=== PATIENT | female | born 1930 | race African-American/Black ===

== ENCOUNTER 2018-04-15 17:56 | Inpatient (IN) ==
[2018-04-15] MEDS ORDERED: KETOROLAC 30 MG/1 ML VIAL IV STA (18:16)
[2018-04-15] MEDS ORDERED: ONDANSETRON 4 MG/2 ML VIAL IV STA (18:16)
[2018-04-15] MEDS ORDERED: SUMAtriptan 6 MG/0.5 ML VIAL SUBCUT STA (18:16)
[2018-04-15] MEDS ORDERED: METOPROLOL TARTRATE 5 MG/5 ML VIAL IV STA (18:16)
[2018-04-15 19:14] LABS: Basophils # 0.1 10*3/uL (0.0-0.2); Basophils % 0.5 % (0.0-0.8); Eosinophils % 0.3 % (0.00-10.9); Hematocrit 30.3 VOL% (35.7-47.0); Hemoglobin 11.2 GM/DL (12.0-16.0); Immature Granulocytes % 0.3 %; Immature Granulocytes Absolute 0.03 #; Lymphocytes # 1.4 10*3/uL (1.4-4.0); Mean Corpuscular Hemoglobin 30 PG (27-34); Mean Corpuscular Volume 80.2 FL (87-102); Mean Platelet Volume 10.1 FL (9.6-12.0); Monocytes # 0.8 10*3/uL (0.11-0.8); Monocytes % 7.1 % (1.7-12.7); Neutrophils # 8.8 10*3/uL (1.4-7.4); Neutrophils % 78.8 % (38.7-73.9); Platelet Count 198 T/CUMM (130-400); Red Blood Count 3.78 MC/CUMM (3.8-5.5); Red Cell Distribution Width 14.3 % (9.3-17.3); White Blood Count 11.1 T/CUMM (4-12)
[2018-04-15 19:21] LABS: INR 1.1; PT Patient Result 11.1 SECS; Partial Thromboplastin Time 28.8 SECS (0-40)
[2018-04-15 19:27] LABS: Alanine Aminotransferase 15 U/L (13-56); Albumin 4.1 G/DL (3.4-5.0); Alkaline Phosphatase 83 U/L (45-117); Amylase 115 U/L (25-115); Aspartate Amino Transferase 22 U/L (0-37); Blood Urea Nitrogen 16 MG/DL (7-18); Calcium 9.1 MG/DL (8.5-10.1); Glucose 114 MG/DL (74-106); Osmolality,Calculated 282.3 MOS/KG (273-304); Potassium 3.6 MMOL/L (3.5-5.1); Sodium 141 MMOL/L (136-145); Total Protein 8.6 G/DL (6.4-8.3)
[2018-04-15 19:35] LABS: Troponin I Only 0.053 NG/ML (0.00-0.045)
[2018-04-15] MEDS ORDERED: FUROSEMIDE 40 MG/4 ML VIAL IV STA (20:16)
[2018-04-15] MEDS ORDERED: NITROGLYCERIN 2% OINT 1 INCH/GM PACK TOP STA (20:43)
[2018-04-15] MEDS ORDERED: ONDANSETRON 4 MG/2 ML VIAL IV PRN (21:53)
[2018-04-15] MEDS ORDERED: CETIRIZINE 10 MG TABLET PO PRN (22:07)
[2018-04-16] MEDS: cefTRIAXone 1,000 MG in SYRINGE 1 EACH IV SCH ×2 (01:04→23:54)
[2018-04-16 07:00] LABS: Basophils # 0.1 10*3/uL (0.0-0.2); Basophils % 0.7 % (0.0-0.8); Eosinophils # 0.1 10*3/uL (0.0-0.87); Eosinophils % 0.9 % (0.00-10.9); Hematocrit 26.6 VOL% (35.7-47.0); Hemoglobin 9.3 GM/DL (12.0-16.0); Immature Granulocytes % 0.3 %; Immature Granulocytes Absolute 0.03 #; Lymphocytes # 1.3 10*3/uL (1.4-4.0); Lymphocytes % 14.4 % (21.3-54.2); Mean Corpuscular Hemoglobin 29 PG (27-34); Mean Corpuscular Volume 83.1 FL (87-102); Mean Platelet Volume 10.3 FL (9.6-12.0); Monocytes # 0.8 10*3/uL (0.11-0.8); Monocytes % 8.6 % (1.7-12.7); Neutrophils # 6.8 10*3/uL (1.4-7.4); Neutrophils % 75.1 % (38.7-73.9); Platelet Count 177 T/CUMM (130-400); Red Cell Distribution Width 14.1 % (9.3-17.3); White Blood Count 9.1 T/CUMM (4-12)
[2018-04-16 07:25] LABS: Calcium 9.1 MG/DL (8.5-10.1); Osmolality,Calculated 287.8 MOS/KG (273-304); Potassium 3.9 MMOL/L (3.5-5.1)
[2018-04-16] MEDS ORDERED: ENOXAPARIN 40 MG/0.4 ML SYRINGE SUBCUT SCH (09:00)
[2018-04-16] MEDS ORDERED: LOSARTAN 25 MG TABLET PO SCH (09:00)
[2018-04-16] MEDS: hydrALAZINE 25 MG TABLET PO SCH ×3 (09:48→21:04)
[2018-04-16] MEDS: FUROSEMIDE 40 MG/4 ML VIAL IV SCH ×2 (09:48→15:02)
[2018-04-16] MEDS: POTASSIUM CHLORIDE 10 MEQ TABLET PO SCH ×2 (09:48→20:41)
[2018-04-16] MEDS: GABAPENTIN 300 MG CAPSULE PO SCH ×3 (09:48→20:41)
[2018-04-16] MEDS: TOLTERODINE LA 4 MG CAPSULE PO SCH (09:49)
[2018-04-16] MEDS: FLUTICASONE 50 MCG NASAL SPRAY 16 GM BOTTLE BOTH NARES SCH (09:49)
[2018-04-16] MEDS: MEMANTINE 10 MG TABLET PO SCH ×2 (09:49→20:42)
[2018-04-16] MEDS: PANTOPRAZOLE 40 MG TABLET PO SCH (09:49)
[2018-04-16] MEDS: CARVEDILOL 6.25 MG TABLET PO SCH ×2 (09:49→20:42)
[2018-04-16] MEDS ORDERED: ASPIRIN EC 325 MG TABLET PO SCH (15:30)
[2018-04-16 17:22] LABS: % Iron Saturation 5.2 % (18-50)
[2018-04-16 17:25] LABS: Troponin I Only 0.072 NG/ML (0.00-0.045)
[2018-04-16] MEDS: DONEPEZIL 10 MG TABLET PO SCH (20:41)
[2018-04-16] MEDS: ACETAMINOPHEN 325 MG TABLET PO PRN (20:41)
[2018-04-17 06:51] LABS: Basophils % 0.3 % (0.0-0.8); Eosinophils # 0.1 10*3/uL (0.0-0.87); Eosinophils % 1.7 % (0.00-10.9); Hemoglobin 8.7 GM/DL (12.0-16.0); Immature Granulocytes % 0.3 %; Immature Granulocytes Absolute 0.02 #; Lymphocytes # 1.6 10*3/uL (1.4-4.0); Lymphocytes % 20.8 % (21.3-54.2); Mean Corpuscular HGB Conc 36.3 GM/DL (32-36); Mean Corpuscular Hemoglobin 30 PG (27-34); Mean Corpuscular Volume 81.6 FL (87-102); Mean Platelet Volume 10.7 FL (9.6-12.0); Monocytes # 0.7 10*3/uL (0.11-0.8); Monocytes % 8.4 % (1.7-12.7); Neutrophils # 5.3 10*3/uL (1.4-7.4); Neutrophils % 68.5 % (38.7-73.9); Platelet Count 166 T/CUMM (130-400); Red Blood Count 2.94 MC/CUMM (3.8-5.5); Red Cell Distribution Width 14.2 % (9.3-17.3); White Blood Count 7.8 T/CUMM (4-12)
[2018-04-17 07:20] LABS: Calcium 8.5 MG/DL (8.5-10.1); Osmolality,Calculated 285.4 MOS/KG (273-304); Potassium 4.3 MMOL/L (3.5-5.1); Risk Ratio 2.62; VLDL CHOLESTEROL 17.2 MG/DL
[2018-04-17 07:48] LABS: CKMB % 0.5 %
[2018-04-17 07:49] LABS: Troponin I Only 0.058 NG/ML (0.00-0.045)
[2018-04-17] MEDS: GABAPENTIN 300 MG CAPSULE PO SCH ×3 (08:27→20:15)
[2018-04-17] MEDS: CARVEDILOL 6.25 MG TABLET PO SCH (08:27)
[2018-04-17] MEDS: MEMANTINE 10 MG TABLET PO SCH ×2 (08:27→20:17)
[2018-04-17] MEDS: PANTOPRAZOLE 40 MG TABLET PO SCH (08:27)
[2018-04-17] MEDS: hydrALAZINE 25 MG TABLET PO SCH (08:27)
[2018-04-17] MEDS: TOLTERODINE LA 4 MG CAPSULE PO SCH (08:27)
[2018-04-17] MEDS: ASPIRIN EC 81 MG TABLET PO SCH (08:27)
[2018-04-17] MEDS: FLUTICASONE 50 MCG NASAL SPRAY 16 GM BOTTLE BOTH NARES SCH (08:31)
[2018-04-17] MEDS: CARVEDILOL 3.125 MG TABLET PO SCH ×2 (14:28→20:16)
[2018-04-17 15:58] LABS: Amorphous Crystals,Urine Occasional /HPF (Few); Apearance,Urine Slightly Hazy (Clear); Bacteria,Urine Occasional /HPF (Few); Bilirubin,Urine Negative (Negative); Blood, Urine Negative (Negative); Glucose,Urine (UA) Negative (Negative); Hyaline Casts,Urine 3 /LPF (0-3); Ketones,Urine Negative (Negative); Nitrite,Urine Negative (Negative); Protein,Urine Negative; RBC,Urine 1 /HPF (0-4); Squamous Epithelial Cell,Urine Occasional /HPF (0-10); Urine Color Yellow (Yellow); Urine Specific Gravity 1.012 (1.001-1.035); Urine Urobilinogen < 2.0 EU/DL (0.2-1.0); WBC,Urine 1 /HPF (0-6)
[2018-04-17] MEDS: DONEPEZIL 10 MG TABLET PO SCH (20:15)
[2018-04-18] MEDS: cefTRIAXone 1,000 MG in SYRINGE 1 EACH IV SCH (00:53)
[2018-04-18] MEDS: ACETAMINOPHEN 325 MG TABLET PO PRN (00:56)
[2018-04-18 06:48] LABS: Basophils % 0.5 % (0.0-0.8); Eosinophils # 0.2 10*3/uL (0.0-0.87); Eosinophils % 3.1 % (0.00-10.9); Hematocrit 24.7 VOL% (35.7-47.0); Hemoglobin 8.7 GM/DL (12.0-16.0); Immature Granulocytes % 0.2 %; Immature Granulocytes Absolute 0.01 #; Lymphocytes # 1.6 10*3/uL (1.4-4.0); Lymphocytes % 23.9 % (21.3-54.2); Mean Corpuscular HGB Conc 35.2 GM/DL (32-36); Mean Corpuscular Hemoglobin 29 PG (27-34); Mean Corpuscular Volume 83.2 FL (87-102); Mean Platelet Volume 10.7 FL (9.6-12.0); Monocytes # 0.6 10*3/uL (0.11-0.8); Neutrophils # 4.1 10*3/uL (1.4-7.4); Neutrophils % 63.3 % (38.7-73.9); Platelet Count 151 T/CUMM (130-400); Red Blood Count 2.97 MC/CUMM (3.8-5.5); White Blood Count 6.5 T/CUMM (4-12)
[2018-04-18 07:30] LABS: Calcium 8.4 MG/DL (8.5-10.1); Osmolality,Calculated 278.1 MOS/KG (273-304); Potassium 4.2 MMOL/L (3.5-5.1)
[2018-04-18] MEDS: CARVEDILOL 3.125 MG TABLET PO SCH (09:40)
[2018-04-18] MEDS: GABAPENTIN 300 MG CAPSULE PO SCH ×3 (09:40→21:17)
[2018-04-18] MEDS: PANTOPRAZOLE 40 MG TABLET PO SCH (09:40)
[2018-04-18] MEDS: FLUTICASONE 50 MCG NASAL SPRAY 16 GM BOTTLE BOTH NARES SCH (09:40)
[2018-04-18] MEDS: ASPIRIN EC 81 MG TABLET PO SCH (09:40)
[2018-04-18] MEDS: TOLTERODINE LA 4 MG CAPSULE PO SCH (09:40)
[2018-04-18] MEDS: MEMANTINE 10 MG TABLET PO SCH ×2 (09:40→21:17)
[2018-04-18] MEDS: DONEPEZIL 10 MG TABLET PO SCH (21:17)
[2018-04-19 06:27] LABS: Calcium 6.5 MG/DL (8.5-10.1); Osmolality,Calculated 278.2 MOS/KG (273-304); Potassium 4.3 MMOL/L (3.5-5.1)
[2018-04-19] MEDS: PANTOPRAZOLE 40 MG TABLET PO SCH (08:48)
[2018-04-19] MEDS: MEMANTINE 10 MG TABLET PO SCH ×2 (08:48→20:40)
[2018-04-19] MEDS: ASPIRIN EC 81 MG TABLET PO SCH (08:48)
[2018-04-19] MEDS: GABAPENTIN 300 MG CAPSULE PO SCH ×3 (08:48→20:39)
[2018-04-19] MEDS: FLUTICASONE 50 MCG NASAL SPRAY 16 GM BOTTLE BOTH NARES SCH (08:49)
[2018-04-19] MEDS: ACETAMINOPHEN 325 MG TABLET PO PRN (10:48)
[2018-04-19] MEDS: DONEPEZIL 10 MG TABLET PO SCH (20:39)
[2018-04-20 07:12] LABS: Basophils % 0.5 % (0.0-0.8); Eosinophils # 0.3 10*3/uL (0.0-0.87); Hematocrit 24.5 VOL% (35.7-47.0); Hemoglobin 8.8 GM/DL (12.0-16.0); Immature Granulocytes % 0.3 %; Immature Granulocytes Absolute 0.02 #; Lymphocytes # 1.2 10*3/uL (1.4-4.0); Lymphocytes % 19.6 % (21.3-54.2); Mean Corpuscular HGB Conc 35.9 GM/DL (32-36); Mean Corpuscular Hemoglobin 29 PG (27-34); Mean Corpuscular Volume 81.9 FL (87-102); Mean Platelet Volume 10.7 FL (9.6-12.0); Monocytes # 0.5 10*3/uL (0.11-0.8); Monocytes % 8.4 % (1.7-12.7); Neutrophils # 4.2 10*3/uL (1.4-7.4); Neutrophils % 67.2 % (38.7-73.9); Platelet Count 176 T/CUMM (130-400); Red Blood Count 2.99 MC/CUMM (3.8-5.5); Red Cell Distribution Width 13.4 % (9.3-17.3); White Blood Count 6.2 T/CUMM (4-12)
[2018-04-20 07:43] LABS: Calcium 8.5 MG/DL (8.5-10.1); Osmolality,Calculated 287.5 MOS/KG (273-304); Potassium 4.6 MMOL/L (3.5-5.1)
[2018-04-20] MEDS: MEMANTINE 10 MG TABLET PO SCH ×2 (10:05→21:32)
[2018-04-20] MEDS: ASPIRIN EC 81 MG TABLET PO SCH (10:05)
[2018-04-20] MEDS: PANTOPRAZOLE 40 MG TABLET PO SCH (10:05)
[2018-04-20] MEDS: GABAPENTIN 300 MG CAPSULE PO SCH ×3 (10:05→21:32)
[2018-04-20] MEDS: FLUTICASONE 50 MCG NASAL SPRAY 16 GM BOTTLE BOTH NARES SCH (10:05)
[2018-04-20] MEDS: DONEPEZIL 10 MG TABLET PO SCH (21:32)
[2018-04-21 07:44] LABS: Osmolality,Calculated 288.3 MOS/KG (273-304); Potassium 4.6 MMOL/L (3.5-5.1)
[2018-04-21] MEDS: MEMANTINE 10 MG TABLET PO SCH ×2 (09:19→20:45)
[2018-04-21] MEDS: PANTOPRAZOLE 40 MG TABLET PO SCH (09:19)
[2018-04-21] MEDS: GABAPENTIN 300 MG CAPSULE PO SCH ×3 (09:19→20:45)
[2018-04-21] MEDS: ASPIRIN EC 81 MG TABLET PO SCH (09:20)
[2018-04-21] MEDS: FLUTICASONE 50 MCG NASAL SPRAY 16 GM BOTTLE BOTH NARES SCH (09:22)
[2018-04-21] MEDS: CARVEDILOL 3.125 MG TABLET PO SCH ×2 (13:50→20:45)
[2018-04-21] MEDS: DONEPEZIL 10 MG TABLET PO SCH (20:45)
[2018-04-22] MEDS ORDERED: BISACODYL 5 MG TABLET PO ONE (07:38)
[2018-04-22] MEDS: PANTOPRAZOLE 40 MG TABLET PO SCH (09:00)
[2018-04-22] MEDS: GABAPENTIN 300 MG CAPSULE PO SCH ×3 (09:00→20:41)
[2018-04-22] MEDS: MEMANTINE 10 MG TABLET PO SCH ×2 (09:00→20:41)
[2018-04-22] MEDS: ASPIRIN EC 81 MG TABLET PO SCH (09:00)
[2018-04-22] MEDS: CARVEDILOL 3.125 MG TABLET PO SCH ×2 (09:01→20:41)
[2018-04-22] MEDS: FLUTICASONE 50 MCG NASAL SPRAY 16 GM BOTTLE BOTH NARES SCH (09:02)
[2018-04-22] MEDS ORDERED: TUBERCULIN SKIN TEST 0.1 ML SYRINGE INTRADERM ONE (13:15)
[2018-04-22] MEDS: POLYETHYLENE GLYCOL POWDER 17 GM PACK PO SCH (14:17)
[2018-04-22] MEDS: DOCUSATE SODIUM 100 MG CAPSULE PO PRN (20:41)
[2018-04-22] MEDS: DONEPEZIL 10 MG TABLET PO SCH (20:41)
[2018-04-23] MEDS: CARVEDILOL 3.125 MG TABLET PO SCH ×2 (09:29→20:20)
[2018-04-23] MEDS: POLYETHYLENE GLYCOL POWDER 17 GM PACK PO SCH (09:29)
[2018-04-23] MEDS: ASPIRIN EC 81 MG TABLET PO SCH (09:29)
[2018-04-23] MEDS: MEMANTINE 10 MG TABLET PO SCH ×2 (09:29→20:20)
[2018-04-23] MEDS: PANTOPRAZOLE 40 MG TABLET PO SCH (09:30)
[2018-04-23] MEDS: GABAPENTIN 300 MG CAPSULE PO SCH ×3 (09:30→20:20)
[2018-04-23] MEDS: DOCUSATE SODIUM 100 MG CAPSULE PO PRN (09:30)
[2018-04-23] MEDS: FLUTICASONE 50 MCG NASAL SPRAY 16 GM BOTTLE BOTH NARES SCH (09:32)
[2018-04-23] MEDS: DONEPEZIL 10 MG TABLET PO SCH (20:20)
[2018-04-24 07:30] LABS: Basophils # 0.1 10*3/uL (0.0-0.2); Basophils % 0.8 % (0.0-0.8); Eosinophils # 0.2 10*3/uL (0.0-0.87); Eosinophils % 2.7 % (0.00-10.9); Hematocrit 24.5 VOL% (35.7-47.0); Hemoglobin 8.6 GM/DL (12.0-16.0); Immature Granulocytes % 0.3 %; Immature Granulocytes Absolute 0.02 #; Lymphocytes # 1.6 10*3/uL (1.4-4.0); Lymphocytes % 20.6 % (21.3-54.2); Mean Corpuscular HGB Conc 35.1 GM/DL (32-36); Mean Corpuscular Hemoglobin 29 PG (27-34); Mean Corpuscular Volume 82.8 FL (87-102); Mean Platelet Volume 10.9 FL (9.6-12.0); Monocytes # 0.7 10*3/uL (0.11-0.8); Monocytes % 8.5 % (1.7-12.7); Neutrophils # 5.3 10*3/uL (1.4-7.4); Neutrophils % 67.1 % (38.7-73.9); Platelet Count 249 T/CUMM (130-400); Red Blood Count 2.96 MC/CUMM (3.8-5.5); Red Cell Distribution Width 13.5 % (9.3-17.3); White Blood Count 7.9 T/CUMM (4-12)
[2018-04-24 07:54] LABS: Osmolality,Calculated 284.3 MOS/KG (273-304); Potassium 4.3 MMOL/L (3.5-5.1)
[2018-04-24] MEDS ORDERED: DICLOFENAC 1.3% PATCH 5/PACK TRANSDERM SCH (09:00)
[2018-04-24] MEDS: GABAPENTIN 300 MG CAPSULE PO SCH (09:37)
[2018-04-24] MEDS: PANTOPRAZOLE 40 MG TABLET PO SCH (09:37)
[2018-04-24] MEDS: ASPIRIN EC 81 MG TABLET PO SCH (09:37)
[2018-04-24] MEDS: POLYETHYLENE GLYCOL POWDER 17 GM PACK PO SCH (09:37)
[2018-04-24] MEDS: MEMANTINE 10 MG TABLET PO SCH (09:37)
[2018-04-24] MEDS: CARVEDILOL 3.125 MG TABLET PO SCH (09:37)
[2018-04-24] MEDS: FLUTICASONE 50 MCG NASAL SPRAY 16 GM BOTTLE BOTH NARES SCH (11:12)
[2018-04-24 12:29] VITALS: BP 151/66
== END 2018-04-24 13:57 | DRG 291 ==
LOC: EDUNIT# → EDBD → N.ED 17:56 → SUATTDRO 21:41 → N.EDINP 21:41 → N.5E 23:34
PROVIDERS: ADMIT Internal Medicine; ATTEND Internal Medicine

== ENCOUNTER 2018-10-26 09:59 | Inpatient (IN) ==
[2018-10-26] MEDS ORDERED: dilTIAZem Drip 125 MG/125 ML PREMIX IV ONE (10:17)
[2018-10-26] MEDS ORDERED: DILTIAZEM 25 MG/5 ML VIAL IV ONE (10:17)
[2018-10-26] MEDS ORDERED: ENOXAPARIN 100 MG/ML SYRINGE SUBCUT STA (10:32)
[2018-10-26] MEDS ORDERED: SODIUM CHLORIDE 0.9% 500 ML IV STA (10:32)
[2018-10-26] MEDS ORDERED: ASPIRIN 325 MG TABLET PO STA (10:32)
[2018-10-26 10:38] LABS: Basophils # 0.1 10*3/uL (0.0-0.2); Basophils % 0.9 % (0.0-0.8); Eosinophils # 0.3 10*3/uL (0.0-0.87); Hematocrit 26.5 VOL% (35.7-47.0); Immature Granulocytes % 0.1 %; Immature Granulocytes Absolute 0.01 #; Lymphocytes # 1.1 10*3/uL (1.4-4.0); Lymphocytes % 17.1 % (21.3-54.2); Mean Corpuscular Hemoglobin 26 PG (27-34); Mean Corpuscular Volume 76.4 FL (87-102); Mean Platelet Volume 9.3 FL (9.6-12.0); Monocytes # 0.4 10*3/uL (0.11-0.8); Monocytes % 5.8 % (1.7-12.7); Neutrophils # 4.8 10*3/uL (1.4-7.4); Neutrophils % 72.1 % (38.7-73.9); Platelet Count 271 T/CUMM (130-400); Red Blood Count 3.47 MC/CUMM (3.8-5.5); Red Cell Distribution Width 18.2 % (9.3-17.3); White Blood Count 6.7 T/CUMM (4-12)
[2018-10-26] MEDS ORDERED: DILTIAZEM 50 MG/10 ML VIAL IV STA (10:41)
[2018-10-26 10:53] LABS: Calcium 9.4 MG/DL (8.5-10.1); Osmolality,Calculated 284.1 MOS/KG (273-304); Potassium 4.1 MMOL/L (3.5-5.1)
[2018-10-26] MEDS: dilTIAZem Drip 125 MG/125 ML PREMIX IV SCH (11:04)
[2018-10-26] MEDS ORDERED: ONDANSETRON 4 MG/2 ML VIAL IV PRN (11:52)
[2018-10-26] MEDS ORDERED: BIOFREEZE 4% TOP PRN (12:41)
[2018-10-26] MEDS ORDERED: MAGNESIUM HYDROXIDE SUSP 30 ML UDCUP PO PRN (12:41)
[2018-10-26] MEDS ORDERED: NITROGLYCERIN SL 0.4 MG TABLET SL PRN (14:08)
[2018-10-26] MEDS: BRIMONIDINE 0.15% OPH SOLN 1 DROP/DROPS BOTTLE BOTH EYES SCH ×2 (14:42→20:51)
[2018-10-26] MEDS: GABAPENTIN 300 MG CAPSULE PO SCH ×2 (14:42→20:51)
[2018-10-26] MEDS: FUROSEMIDE 40 MG/4 ML VIAL IV SCH (14:42)
[2018-10-26] MEDS: ACETAMINOPHEN 325 MG TABLET PO PRN (15:14)
[2018-10-26] MEDS ORDERED: DONEPEZIL 10 MG TABLET PO SCH (19:00)
[2018-10-26] MEDS: MEMANTINE 10 MG TABLET PO SCH (20:51)
[2018-10-26] MEDS: CARVEDILOL 3.125 MG TABLET PO SCH (20:51)
[2018-10-27 04:48] LABS: Basophils # 0.1 10*3/uL (0.0-0.2); Basophils % 1.5 % (0.0-0.8); Eosinophils # 0.5 10*3/uL (0.0-0.87); Eosinophils % 9.7 % (0.00-10.9); Hematocrit 25.6 VOL% (35.7-47.0); Hemoglobin 8.3 GM/DL (12.0-16.0); Immature Granulocytes % 0.4 %; Immature Granulocytes Absolute 0.02 #; Lymphocytes # 1.4 10*3/uL (1.4-4.0); Lymphocytes % 29.2 % (21.3-54.2); Mean Corpuscular HGB Conc 32.4 GM/DL (32-36); Mean Corpuscular Hemoglobin 25 PG (27-34); Mean Corpuscular Volume 77.1 FL (87-102); Mean Platelet Volume 9.5 FL (9.6-12.0); Monocytes # 0.3 10*3/uL (0.11-0.8); Monocytes % 7.3 % (1.7-12.7); Neutrophils # 2.4 10*3/uL (1.4-7.4); Neutrophils % 51.9 % (38.7-73.9); Platelet Count 267 T/CUMM (130-400); Red Blood Count 3.32 MC/CUMM (3.8-5.5); Red Cell Distribution Width 18.2 % (9.3-17.3); White Blood Count 4.6 T/CUMM (4-12)
[2018-10-27 05:34] LABS: Albumin 2.7 G/DL (3.4-5.0); Bilirubin,Total 0.5 MG/DL (0.2-1.0); Calcium 9.1 MG/DL (8.5-10.1); Osmolality,Calculated 285.8 MOS/KG (273-304); Potassium 3.6 MMOL/L (3.5-5.1); Risk Ratio 3.02; Thyroid Stimulating Hormone 2.23 uIU/ml (0.358-3.74); Total Protein 7.6 G/DL (6.4-8.3); VLDL CHOLESTEROL 11.2 MG/DL
[2018-10-27] MEDS: dilTIAZem Drip 125 MG/125 ML PREMIX IV SCH (07:03)
[2018-10-27] MEDS ORDERED: amLODIPine 5 MG TABLET PO SCH (09:00)
[2018-10-27] MEDS: FUROSEMIDE 40 MG/4 ML VIAL IV SCH (10:17)
[2018-10-27] MEDS: FLUTICASONE 50 MCG NASAL SPRAY 16 GM BOTTLE BOTH NARES SCH (10:18)
[2018-10-27] MEDS: BRIMONIDINE 0.15% OPH SOLN 1 DROP/DROPS BOTTLE BOTH EYES SCH ×3 (10:18→21:21)
[2018-10-27] MEDS: DILTIAZEM CD 180 MG CAPSULE PO SCH (10:19)
[2018-10-27] MEDS: MULTIVITAMIN (CENTRUM) TABLET PO SCH (10:19)
[2018-10-27] MEDS: GABAPENTIN 300 MG CAPSULE PO SCH ×3 (10:19→21:21)
[2018-10-27] MEDS: PANTOPRAZOLE 40 MG TABLET PO SCH (10:19)
[2018-10-27] MEDS: FOLIC ACID 1 MG TABLET PO SCH (10:20)
[2018-10-27] MEDS: MEMANTINE 10 MG TABLET PO SCH ×2 (10:20→21:21)
[2018-10-27] MEDS: CARVEDILOL 3.125 MG TABLET PO SCH (10:20)
[2018-10-27] MEDS: FERROUS SULFATE 325 MG TABLET PO SCH (10:20)
[2018-10-27] MEDS: ASPIRIN EC 81 MG TABLET PO SCH (10:21)
[2018-10-27] MEDS: LINACLOTIDE 145 MCG CAPSULE PO SCH (10:21)
[2018-10-27] MEDS ORDERED: BISACODYL 5 MG TABLET PO ONE (13:24)
[2018-10-27] MEDS: DONEPEZIL 10 MG TABLET PO SCH (21:21)
[2018-10-28] MEDS: traMADol 50 MG TABLET PO PRN ×2 (01:51→21:58)
[2018-10-28] MEDS: CARVEDILOL 3.125 MG TABLET PO SCH ×3 (01:52→21:57)
[2018-10-28 05:48] LABS: Basophils # 0.1 10*3/uL (0.0-0.2); Basophils % 0.9 % (0.0-0.8); Eosinophils # 0.3 10*3/uL (0.0-0.87); Hematocrit 25.1 VOL% (35.7-47.0); Hemoglobin 8.4 GM/DL (12.0-16.0); Immature Granulocytes % 0.4 %; Immature Granulocytes Absolute 0.02 #; Lymphocytes # 1.4 10*3/uL (1.4-4.0); Lymphocytes % 23.9 % (21.3-54.2); Mean Corpuscular HGB Conc 33.5 GM/DL (32-36); Mean Corpuscular Hemoglobin 26 PG (27-34); Mean Corpuscular Volume 77.2 FL (87-102); Mean Platelet Volume 9.3 FL (9.6-12.0); Monocytes # 0.4 10*3/uL (0.11-0.8); Monocytes % 7.1 % (1.7-12.7); Neutrophils # 3.6 10*3/uL (1.4-7.4); Neutrophils % 62.7 % (38.7-73.9); Platelet Count 240 T/CUMM (130-400); Red Blood Count 3.25 MC/CUMM (3.8-5.5); Red Cell Distribution Width 18.1 % (9.3-17.3); White Blood Count 5.7 T/CUMM (4-12)
[2018-10-28 06:13] LABS: Albumin 2.8 G/DL (3.4-5.0); Bilirubin,Total 0.6 MG/DL (0.2-1.0); Calcium 9.3 MG/DL (8.5-10.1); Potassium 3.4 MMOL/L (3.5-5.1); Total Protein 7.8 G/DL (6.4-8.3)
[2018-10-28] MEDS: POTASSIUM CHLORIDE 20 MEQ TABLET PO PRN ×2 (07:32→12:10)
[2018-10-28] MEDS ORDERED: POTASSIUM CHLORIDE 20 MEQ TABLET PO ONE (09:02)
[2018-10-28] MEDS: GABAPENTIN 300 MG CAPSULE PO SCH ×3 (09:50→21:57)
[2018-10-28] MEDS: FOLIC ACID 1 MG TABLET PO SCH (09:50)
[2018-10-28] MEDS: PANTOPRAZOLE 40 MG TABLET PO SCH (09:50)
[2018-10-28] MEDS: MEMANTINE 10 MG TABLET PO SCH ×2 (09:51→21:57)
[2018-10-28] MEDS: DILTIAZEM CD 180 MG CAPSULE PO SCH (09:51)
[2018-10-28] MEDS: ASPIRIN EC 81 MG TABLET PO SCH (09:51)
[2018-10-28] MEDS: FERROUS SULFATE 325 MG TABLET PO SCH (09:51)
[2018-10-28] MEDS: MULTIVITAMIN (CENTRUM) TABLET PO SCH (09:52)
[2018-10-28] MEDS: LINACLOTIDE 145 MCG CAPSULE PO SCH (09:52)
[2018-10-28] MEDS: FUROSEMIDE 40 MG/4 ML VIAL IV SCH (09:53)
[2018-10-28] MEDS: BRIMONIDINE 0.15% OPH SOLN 1 DROP/DROPS BOTTLE BOTH EYES SCH ×3 (09:55→21:56)
[2018-10-28] MEDS: FLUTICASONE 50 MCG NASAL SPRAY 16 GM BOTTLE BOTH NARES SCH (09:55)
[2018-10-28] MEDS: DONEPEZIL 10 MG TABLET PO SCH (21:57)
[2018-10-29 07:50] VITALS: BP 126/54
[2018-10-29] MEDS: FUROSEMIDE 40 MG/4 ML VIAL IV SCH (09:36)
[2018-10-29] MEDS: DILTIAZEM CD 180 MG CAPSULE PO SCH (09:37)
[2018-10-29] MEDS: GABAPENTIN 300 MG CAPSULE PO SCH (09:37)
[2018-10-29] MEDS: FERROUS SULFATE 325 MG TABLET PO SCH (09:37)
[2018-10-29] MEDS: PANTOPRAZOLE 40 MG TABLET PO SCH (09:37)
[2018-10-29] MEDS: FOLIC ACID 1 MG TABLET PO SCH (09:37)
[2018-10-29] MEDS: ASPIRIN EC 81 MG TABLET PO SCH (09:37)
[2018-10-29] MEDS: MEMANTINE 10 MG TABLET PO SCH (09:39)
[2018-10-29] MEDS: LINACLOTIDE 145 MCG CAPSULE PO SCH (09:40)
[2018-10-29] MEDS: MULTIVITAMIN (CENTRUM) TABLET PO SCH (09:40)
[2018-10-29] MEDS: CARVEDILOL 3.125 MG TABLET PO SCH (09:41)
[2018-10-29] MEDS: ACETAMINOPHEN 325 MG TABLET PO PRN (09:55)
[2018-10-29] MEDS: BRIMONIDINE 0.15% OPH SOLN 1 DROP/DROPS BOTTLE BOTH EYES SCH (10:06)
[2018-10-29] MEDS: FLUTICASONE 50 MCG NASAL SPRAY 16 GM BOTTLE BOTH NARES SCH (10:06)
== END 2018-10-29 11:36 | DRG 308 ==
LOC: EDUNIT# → EDBD → N.ED 09:59 → N.EDINP 11:52 → N.TELES 12:30
PROVIDERS: ADMIT Internal Medicine; ATTEND Internal Medicine

== ENCOUNTER 2019-01-03 11:45 | Inpatient (IN) ==
[2019-01-03] MEDS ORDERED: PANTOPRAZOLE 40 MG VIAL IV STA (12:07)
[2019-01-03 13:09] LABS: Basophils # 0.1 10*3/uL (0.0-0.2); Basophils % 0.6 % (0.0-0.8); Eosinophils # 0.2 10*3/uL (0.0-0.87); Eosinophils % 2.1 % (0.00-10.9); Hemoglobin 8.1 GM/DL (12.0-16.0); Immature Granulocytes % 0.2 %; Immature Granulocytes Absolute 0.02 #; Lymphocytes % 11.7 % (21.3-54.2); Mean Corpuscular HGB Conc 32.4 GM/DL (32-36); Mean Corpuscular Hemoglobin 27 PG (27-34); Mean Corpuscular Volume 83.1 FL (87-102); Mean Platelet Volume 9.4 FL (9.6-12.0); Monocytes # 0.5 10*3/uL (0.11-0.8); Monocytes % 6.3 % (1.7-12.7); Neutrophils # 6.7 10*3/uL (1.4-7.4); Neutrophils % 79.1 % (38.7-73.9); Platelet Count 298 T/CUMM (130-400); Red Blood Count 3.01 MC/CUMM (3.8-5.5); Red Cell Distribution Width 18.7 % (9.3-17.3); White Blood Count 8.5 T/CUMM (4-12)
[2019-01-03 13:20] LABS: INR 0.9; PT Patient Result 9.4 SECS; Partial Thromboplastin Time 24.6 SECS (0-40)
[2019-01-03 13:36] LABS: Albumin 3.7 G/DL (3.4-5.0); Bilirubin,Total 0.7 MG/DL (0.2-1.0); Calcium 9.9 MG/DL (8.5-10.1); Osmolality,Calculated 279.5 MOS/KG (273-304); Potassium 4.6 MMOL/L (3.5-5.1); Total Protein 9.1 G/DL (6.4-8.3)
[2019-01-03] MEDS ORDERED: ONDANSETRON 4 MG/2 ML VIAL IV PRN (15:05)
[2019-01-03] MEDS ORDERED: ACETAMINOPHEN 325 MG TABLET PO PRN (15:05)
[2019-01-03] MEDS ORDERED: POTASSIUM CHLORIDE RIDER 10 MEQ in PREMIX 1 EACH IV PRN (15:05)
[2019-01-03] MEDS ORDERED: MAGNESIUM SULF RIDER 4 GM in PREMIX 1 EACH IV PRN (15:05)
[2019-01-03] MEDS ORDERED: MAGNESIUM SULF RIDER 2 GM in PREMIX 1 EACH IV PRN (15:05)
[2019-01-03] MEDS ORDERED: SODIUM CHLORIDE 0.9% 1,000 ML IV PRN (15:05)
[2019-01-03] MEDS ORDERED: diphenhydrAMINE CAP 25 MG CAPSULE PO PRN (15:05)
[2019-01-03] MEDS ORDERED: FUROSEMIDE 40 MG/4 ML VIAL IV SCH (15:30)
[2019-01-03 16:13] LABS: Risk Ratio 2.51; Thyroid Stimulating Hormone 2.05 uIU/ml (0.358-3.74); VLDL CHOLESTEROL 16.6 MG/DL
[2019-01-03] MEDS ORDERED: NITROGLYCERIN SL 0.4 MG TABLET SL PRN (17:03)
[2019-01-03] MEDS ORDERED: ACETAMINOPHEN 500 MG TABLET PO PRN (17:03)
[2019-01-03 18:29] LABS: % Iron Saturation 80.6 % (18-50); Ferritin 52.8 ng/ml (8-252)
[2019-01-03] MEDS: cefTRIAXone 1,000 MG in SYRINGE 1 EACH IV SCH (19:13)
[2019-01-03] MEDS: traMADol 50 MG TABLET PO SCH (19:13)
[2019-01-03] MEDS: ALBUTEROL/IPRATROPIUM 3 ML NEB RESP TX SCH (19:36)
[2019-01-03 20:10] LABS: Folate > 24.0 NG/ML (5.4-24.0); Vitamin B12 574 PG/ML (211-911)
[2019-01-03] MEDS: CARVEDILOL 3.125 MG TABLET PO SCH (21:47)
[2019-01-03] MEDS: ZALEPLON 5 MG CAPSULE PO PRN (21:47)
[2019-01-03] MEDS: PANTOPRAZOLE 40 MG VIAL IV SCH (21:47)
[2019-01-03] MEDS: GABAPENTIN 300 MG CAPSULE PO SCH (21:47)
[2019-01-04] MEDS: ALBUTEROL/IPRATROPIUM 3 ML NEB RESP TX SCH ×4 (00:04→19:01)
[2019-01-04] MEDS: traMADol 50 MG TABLET PO SCH ×2 (06:59→16:52)
[2019-01-04] MEDS ORDERED: FERROUS SULFATE 325 MG TABLET PO SCH (09:00)
[2019-01-04] MEDS: PANTOPRAZOLE 40 MG VIAL IV SCH ×2 (09:15→22:09)
[2019-01-04] MEDS: FOLIC ACID 1 MG TABLET PO SCH (09:16)
[2019-01-04] MEDS: FERROUS SULFATE 325 MG TABLET PO SCH ×3 (09:16→22:09)
[2019-01-04] MEDS: predniSONE 20 MG TABLET PO SCH (09:16)
[2019-01-04] MEDS: ASCORBIC ACID 500 MG TABLET PO SCH ×2 (09:16→22:09)
[2019-01-04] MEDS: MULTIVITAMIN (CENTRUM) TABLET PO SCH (09:16)
[2019-01-04] MEDS: GABAPENTIN 300 MG CAPSULE PO SCH ×3 (09:16→22:09)
[2019-01-04] MEDS: FLUTICASONE 50 MCG NASAL SPRAY 16 GM BOTTLE BOTH NARES SCH (09:17)
[2019-01-04] MEDS: CARVEDILOL 3.125 MG TABLET PO SCH ×2 (09:17→16:53)
[2019-01-04] MEDS: FUROSEMIDE 40 MG/4 ML VIAL IV SCH (09:17)
[2019-01-04] MEDS: amLODIPine 10 MG TABLET PO SCH (09:17)
[2019-01-04 13:07] LABS: Basophils # 0.1 10*3/uL (0.0-0.2); Basophils % 0.9 % (0.0-0.8); Eosinophils % 0.2 % (0.00-10.9); Hematocrit 22.1 VOL% (35.7-47.0); Hemoglobin 7.2 GM/DL (12.0-16.0); Immature Granulocytes % 0.5 %; Immature Granulocytes Absolute 0.04 #; Lymphocytes # 0.6 10*3/uL (1.4-4.0); Lymphocytes % 6.9 % (21.3-54.2); Mean Corpuscular HGB Conc 32.6 GM/DL (32-36); Mean Corpuscular Hemoglobin 27 PG (27-34); Mean Corpuscular Volume 82.5 FL (87-102); Mean Platelet Volume 9.6 FL (9.6-12.0); Monocytes # 0.2 10*3/uL (0.11-0.8); Monocytes % 2.1 % (1.7-12.7); Neutrophils # 7.2 10*3/uL (1.4-7.4); Neutrophils % 89.4 % (38.7-73.9); Platelet Count 238 T/CUMM (130-400); Red Blood Count 2.68 MC/CUMM (3.8-5.5); Red Cell Distribution Width 18.6 % (9.3-17.3); White Blood Count 8.1 T/CUMM (4-12)
[2019-01-04 13:35] LABS: Albumin 3.4 G/DL (3.4-5.0); Bilirubin,Total 0.4 MG/DL (0.2-1.0); Calcium 9.2 MG/DL (8.5-10.1); Osmolality,Calculated 276.8 MOS/KG (273-304); Potassium 3.7 MMOL/L (3.5-5.1); Total Protein 8.3 G/DL (6.4-8.3)
[2019-01-04] MEDS ORDERED: SODIUM CHLORIDE 0.9% 1,000 ML IV PRN (13:36)
[2019-01-04 13:43] LABS: Lymphocytes 3 % (20-55); Segmented Neutrophils 95 % (50-85); Total Cells Counted 100
[2019-01-04 13:44] LABS: Hypochromasia Slight; Microcytosis 1+; Platelet Estimate Normal
[2019-01-04] MEDS: cefTRIAXone 1,000 MG in SYRINGE 1 EACH IV SCH (17:07)
[2019-01-05] MEDS: ALBUTEROL/IPRATROPIUM 3 ML NEB RESP TX SCH ×4 (00:42→19:07)
[2019-01-05 05:59] LABS: Basophils % 0.4 % (0.0-0.8); Hematocrit 24.5 VOL% (35.7-47.0); Hemoglobin 8.1 GM/DL (12.0-16.0); Immature Granulocytes % 0.2 %; Immature Granulocytes Absolute 0.01 #; Lymphocytes # 0.8 10*3/uL (1.4-4.0); Lymphocytes % 15.8 % (21.3-54.2); Mean Corpuscular HGB Conc 33.1 GM/DL (32-36); Mean Corpuscular Hemoglobin 28 PG (27-34); Mean Corpuscular Volume 83.9 FL (87-102); Mean Platelet Volume 9.4 FL (9.6-12.0); Monocytes # 0.7 10*3/uL (0.11-0.8); Monocytes % 13.8 % (1.7-12.7); Neutrophils # 3.5 10*3/uL (1.4-7.4); Neutrophils % 69.8 % (38.7-73.9); Platelet Count 210 T/CUMM (130-400); Red Blood Count 2.92 MC/CUMM (3.8-5.5); Red Cell Distribution Width 17.7 % (9.3-17.3)
[2019-01-05 06:26] LABS: Albumin 3.1 G/DL (3.4-5.0); Bilirubin,Total 0.4 MG/DL (0.2-1.0); Calcium 9.1 MG/DL (8.5-10.1); Osmolality,Calculated 284.3 MOS/KG (273-304); Potassium 3.8 MMOL/L (3.5-5.1); Total Protein 7.8 G/DL (6.4-8.3)
[2019-01-05] MEDS: traMADol 50 MG TABLET PO SCH ×2 (07:29→17:22)
[2019-01-05] MEDS: CARVEDILOL 3.125 MG TABLET PO SCH ×2 (09:35→17:22)
[2019-01-05] MEDS ORDERED: PROPOFOL 200 MG/20 ML VIAL IV ONE (10:00)
[2019-01-05] MEDS ORDERED: LIDOCAINE 100 MG/5 ML SYRINGE ONE (10:00)
[2019-01-05] MEDS: amLODIPine 10 MG TABLET PO SCH ×2 (10:13→12:18)
[2019-01-05] MEDS: FOLIC ACID 1 MG TABLET PO SCH (12:16)
[2019-01-05] MEDS: predniSONE 20 MG TABLET PO SCH (12:16)
[2019-01-05] MEDS: GABAPENTIN 300 MG CAPSULE PO SCH ×3 (12:16→21:39)
[2019-01-05] MEDS: MULTIVITAMIN (CENTRUM) TABLET PO SCH (12:16)
[2019-01-05] MEDS: ASCORBIC ACID 500 MG TABLET PO SCH ×2 (12:17→21:40)
[2019-01-05] MEDS: FUROSEMIDE 40 MG/4 ML VIAL IV SCH (12:17)
[2019-01-05] MEDS: FERROUS SULFATE 325 MG TABLET PO SCH ×3 (12:17→21:39)
[2019-01-05] MEDS: PANTOPRAZOLE 40 MG VIAL IV SCH ×2 (12:18→21:37)
[2019-01-05] MEDS: FLUTICASONE 50 MCG NASAL SPRAY 16 GM BOTTLE BOTH NARES SCH (12:18)
[2019-01-05] MEDS: cefTRIAXone 1,000 MG in SYRINGE 1 EACH IV SCH (21:54)
[2019-01-05] MEDS: ZALEPLON 5 MG CAPSULE PO PRN (22:47)
[2019-01-06] MEDS: ALBUTEROL/IPRATROPIUM 3 ML NEB RESP TX SCH ×2 (00:19→07:10)
[2019-01-06] MEDS: traMADol 50 MG TABLET PO SCH (05:04)
[2019-01-06 05:21] LABS: Basophils % 0.2 % (0.0-0.8); Hematocrit 24.7 VOL% (35.7-47.0); Hemoglobin 8.2 GM/DL (12.0-16.0); Immature Granulocytes % 0.4 %; Immature Granulocytes Absolute 0.02 #; Lymphocytes # 0.7 10*3/uL (1.4-4.0); Mean Corpuscular HGB Conc 33.2 GM/DL (32-36); Mean Corpuscular Hemoglobin 28 PG (27-34); Mean Corpuscular Volume 83.4 FL (87-102); Mean Platelet Volume 9.7 FL (9.6-12.0); Monocytes # 0.4 10*3/uL (0.11-0.8); Monocytes % 6.7 % (1.7-12.7); Neutrophils # 4.6 10*3/uL (1.4-7.4); Neutrophils % 79.7 % (38.7-73.9); Platelet Count 216 T/CUMM (130-400); Red Blood Count 2.96 MC/CUMM (3.8-5.5); Red Cell Distribution Width 17.3 % (9.3-17.3); White Blood Count 5.7 T/CUMM (4-12)
[2019-01-06 05:46] LABS: Bilirubin,Total 0.5 MG/DL (0.2-1.0); Calcium 8.8 MG/DL (8.5-10.1); Osmolality,Calculated 281.7 MOS/KG (273-304); Potassium 3.7 MMOL/L (3.5-5.1); Total Protein 7.7 G/DL (6.4-8.3)
[2019-01-06] MEDS: FERROUS SULFATE 325 MG TABLET PO SCH (09:39)
[2019-01-06] MEDS: GABAPENTIN 300 MG CAPSULE PO SCH (09:39)
[2019-01-06] MEDS: predniSONE 20 MG TABLET PO SCH (09:40)
[2019-01-06] MEDS: amLODIPine 10 MG TABLET PO SCH (09:40)
[2019-01-06] MEDS: ASCORBIC ACID 500 MG TABLET PO SCH (09:40)
[2019-01-06] MEDS: FLUTICASONE 50 MCG NASAL SPRAY 16 GM BOTTLE BOTH NARES SCH (09:41)
[2019-01-06] MEDS: FOLIC ACID 1 MG TABLET PO SCH (09:41)
[2019-01-06] MEDS: MULTIVITAMIN (CENTRUM) TABLET PO SCH (09:41)
[2019-01-06] MEDS: CARVEDILOL 3.125 MG TABLET PO SCH (09:41)
[2019-01-06] MEDS: FUROSEMIDE 40 MG/4 ML VIAL IV SCH (09:45)
[2019-01-06] MEDS: PANTOPRAZOLE 40 MG VIAL IV SCH (09:46)
[2019-01-06 12:11] VITALS: BP 129/56
== END 2019-01-06 13:05 | DRG 377 ==
LOC: EDUNIT# → EDBD → N.ED 11:45 → N.EDINP 16:37 → SUATTDRO 16:37 → N.2E 17:09
PROVIDERS: ADMIT Internal Medicine; ATTEND Internal Medicine Geriatric Medicine

== ENCOUNTER 2019-01-12 23:57 | Inpatient (IN) ==
[2019-01-13] MEDS ORDERED: ETOMIDATE 20 MG/10 ML VIAL IV ONE (00:02)
[2019-01-13] MEDS ORDERED: VECURONIUM 10 MG VIAL IV ONE ×2 (00:02→01:38)
[2019-01-13] MEDS ORDERED: CLINDAMYCIN INJ 600 MG in PREMIX 1 EACH IV STA (00:15)
[2019-01-13] MEDS ORDERED: cefTRIAXone 1,000 MG in SODIUM CHLORIDE 0.9% 100 ML IV STA (00:15)
[2019-01-13] MEDS ORDERED: methylPREDNISolone SOD SUC 125 MG/2 ML VIAL IV STA (00:15)
[2019-01-13] MEDS ORDERED: ONDANSETRON 4 MG/2 ML VIAL IV STA (00:15)
[2019-01-13] MEDS ORDERED: PROPOFOL 1,000 MG/100 ML BOTTLE IV ONE (00:41)
[2019-01-13 00:42] LABS: Basophils # 0.1 10*3/uL (0.0-0.2); Basophils % 0.3 % (0.0-0.8); Eosinophils # 0.2 10*3/uL (0.0-0.87); Eosinophils % 1.5 % (0.00-10.9); Hematocrit 27.9 VOL% (35.7-47.0); Hemoglobin 9.1 GM/DL (12.0-16.0); Immature Granulocytes % 0.9 %; Immature Granulocytes Absolute 0.14 #; Lymphocytes # 1.5 10*3/uL (1.4-4.0); Lymphocytes % 9.5 % (21.3-54.2); Mean Corpuscular HGB Conc 32.6 GM/DL (32-36); Mean Corpuscular Hemoglobin 28 PG (27-34); Mean Corpuscular Volume 84.5 FL (87-102); Mean Platelet Volume 9.3 FL (9.6-12.0); Monocytes # 0.7 10*3/uL (0.11-0.8); Monocytes % 4.6 % (1.7-12.7); Neutrophils # 13.1 10*3/uL (1.4-7.4); Neutrophils % 83.2 % (38.7-73.9); Platelet Count 268 T/CUMM (130-400); Red Cell Distribution Width 16.5 % (9.3-17.3); White Blood Count 15.7 T/CUMM (4-12)
[2019-01-13] MEDS: PROPOFOL 1,000 MG/100 ML BOTTLE IV SCH ×4 (01:00→23:00)
[2019-01-13 01:15] LABS: Alanine Aminotransferase 20 U/L (13-56); Albumin 3.4 G/DL (3.4-5.0); Alkaline Phosphatase 90 U/L (45-117); Aspartate Amino Transferase 19 U/L (0-37); Blood Urea Nitrogen 25 MG/DL (7-18); Calcium 9.2 MG/DL (8.5-10.1); Glucose 158 MG/DL (74-106); Osmolality,Calculated 283.5 MOS/KG (273-304); Potassium 4.7 MMOL/L (3.5-5.1); Sodium 139 MMOL/L (136-145); Total Protein 8.6 G/DL (6.4-8.3)
[2019-01-13 01:18] LABS: Troponin I 0.261 NG/ML (0.00-0.045)
[2019-01-13 01:35] LABS: Apearance,Urine Slightly Hazy (Clear); Bilirubin,Urine Negative (Negative); Blood, Urine Negative (Negative); Glucose,Urine (UA) Negative (Negative); Hyaline Casts,Urine 13 /LPF (0-3); Ketones,Urine Negative (Negative); Mucus,Urine Occasional /LPF (Occasional); Nitrite,Urine Negative (Negative); Protein,Urine 100 MG/DL; RBC,Urine 4 /HPF (0-4); Squamous Epithelial Cell,Urine Occasional /HPF (0-10); Urine Color Yellow (Yellow); Urine Urobilinogen < 2.0 EU/DL (0.2-1.0); WBC,Urine 3 /HPF (0-6)
[2019-01-13 01:51] LABS: ABG Base Excess 0.3 MMOL/L (-2.5-2.5); ABG HCO3 24.7 MMOL/L (20-26); ABG Oxygen Saturation 99.6 % (95-100); ABG PCO2 36.3 MM HG (35-48); ABG PH 7.433 (7.35-7.45); ABG TCO2 21.7 MMOL/L (23-27); Allen Test Positive; Pt O2 Delivery Device Ventilator
[2019-01-13] MEDS ORDERED: ALBUTEROL 2.5 MG/3 ML NEB RESP TX PRN (02:34)
[2019-01-13] MEDS ORDERED: ONDANSETRON 4 MG/2 ML VIAL IV PRN (02:34)
[2019-01-13] MEDS ORDERED: FUROSEMIDE 40 MG/4 ML VIAL IV STA (02:47)
[2019-01-13] MEDS ORDERED: AMPICILLIN/SULBACTAM 3,000 MG in SODIUM CHLORIDE 0.9% 100 ML IV SCH (03:00)
[2019-01-13] MEDS ORDERED: FUROSEMIDE 40 MG/4 ML VIAL IV SCH (08:00)
[2019-01-13] MEDS: PANTOPRAZOLE 40 MG VIAL IV SCH (08:07)
[2019-01-13] MEDS: FUROSEMIDE 40 MG/4 ML VIAL IV SCH (08:07)
[2019-01-13] MEDS: AMPICILLIN/SULBACTAM 3,000 MG in SODIUM CHLORIDE 0.9% 100 ML IV SCH ×3 (08:35→21:33)
[2019-01-13] MEDS ORDERED: MAGNESIUM HYDROXIDE SUSP 30 ML UDCUP PO PRN (10:50)
[2019-01-13] MEDS ORDERED: DILTIAZEM 50 MG/10 ML VIAL IV ONE ×2 (13:25→13:40)
[2019-01-13] MEDS ORDERED: DILTIAZEM CD 180 MG CAPSULE PO ONE (13:41)
[2019-01-13] MEDS ORDERED: DEXTROSE 50% 25 GM/50 ML SYRINGE IV PRN (14:55)
[2019-01-13] MEDS ORDERED: GLUCAGON 1 MG VIAL IM PRN (14:55)
[2019-01-13] MEDS: GABAPENTIN 300 MG CAPSULE PO SCH ×2 (15:50→21:50)
[2019-01-13] MEDS: BRIMONIDINE 0.15% OPH SOLN 1 DROP/DROPS BOTTLE BOTH EYES SCH ×2 (15:50→21:50)
[2019-01-13] MEDS: CARVEDILOL 3.125 MG TABLET PO SCH (17:59)
[2019-01-13] MEDS: dilTIAZem Drip 125 MG/125 ML PREMIX IV SCH (18:11)
[2019-01-13] MEDS: INSULIN REGULAR 100 UNIT/ML SUBCUT SCH (18:52)
[2019-01-13] MEDS: DONEPEZIL 10 MG TABLET PO SCH (21:50)
[2019-01-13] MEDS: MEMANTINE 10 MG TABLET PO SCH (21:50)
[2019-01-14] MEDS: INSULIN REGULAR 100 UNIT/ML SUBCUT SCH ×4 (00:30→17:09)
[2019-01-14] MEDS: dilTIAZem Drip 125 MG/125 ML PREMIX IV SCH ×2 (00:31→18:38)
[2019-01-14] MEDS: PROPOFOL 1,000 MG/100 ML BOTTLE IV SCH ×4 (02:33→18:19)
[2019-01-14] MEDS: AMPICILLIN/SULBACTAM 3,000 MG in SODIUM CHLORIDE 0.9% 100 ML IV SCH ×4 (02:42→21:17)
[2019-01-14 03:51] LABS: ABG HCO3 25.2 MMOL/L (20-26); ABG Oxygen Saturation 98.7 % (95-100); ABG PCO2 25.1 MM HG (35-48); ABG PO2 218.6 MM HG (80-95); ABG TCO2 25.9 MMOL/L (23-27); Pt O2 Delivery Device Ventilator
[2019-01-14 04:04] LABS: ABG PH 7.619 (7.35-7.45)
[2019-01-14 04:17] LABS: Basophils % 0.1 % (0.0-0.8); Hematocrit 22.1 VOL% (35.7-47.0); Hemoglobin 7.5 GM/DL (12.0-16.0); Immature Granulocytes % 0.7 %; Immature Granulocytes Absolute 0.07 #; Lymphocytes % 10.6 % (21.3-54.2); Mean Corpuscular HGB Conc 33.9 GM/DL (32-36); Mean Corpuscular Hemoglobin 28 PG (27-34); Mean Corpuscular Volume 82.2 FL (87-102); Monocytes # 0.7 10*3/uL (0.11-0.8); Monocytes % 6.9 % (1.7-12.7); Neutrophils # 7.7 10*3/uL (1.4-7.4); Neutrophils % 81.7 % (38.7-73.9); Platelet Count 220 T/CUMM (130-400); Red Blood Count 2.69 MC/CUMM (3.8-5.5); Red Cell Distribution Width 16.1 % (9.3-17.3); White Blood Count 9.4 T/CUMM (4-12)
[2019-01-14 04:40] LABS: Calcium 8.6 MG/DL (8.5-10.1); Osmolality,Calculated 285.4 MOS/KG (273-304); Potassium 3.4 MMOL/L (3.5-5.1)
[2019-01-14 04:45] LABS: Prealbumin 16.4 MG/DL (20-40)
[2019-01-14] MEDS ORDERED: POTASSIUM CHLORIDE 20 MEQ/15 ML UDCUP PER TUBE ONE (10:00)
[2019-01-14] MEDS ORDERED: SODIUM CHLORIDE 0.9% 1,000 ML IV PRN (10:32)
[2019-01-14 11:16] LABS: Hematocrit 24.8 VOL% (35.7-47.0); Hemoglobin 8.4 GM/DL (12.0-16.0)
[2019-01-14] MEDS: DILTIAZEM CD 180 MG CAPSULE PO SCH (12:07)
[2019-01-14] MEDS: MULTIVITAMIN (CENTRUM) TABLET PO SCH (12:08)
[2019-01-14] MEDS: MEMANTINE 10 MG TABLET PO SCH ×2 (12:08→22:04)
[2019-01-14] MEDS: ASPIRIN EC 81 MG TABLET PO SCH (12:08)
[2019-01-14] MEDS: CARVEDILOL 3.125 MG TABLET PO SCH ×2 (12:09→16:28)
[2019-01-14] MEDS: FERROUS SULFATE 325 MG TABLET PO SCH (12:09)
[2019-01-14] MEDS: BRIMONIDINE 0.15% OPH SOLN 1 DROP/DROPS BOTTLE BOTH EYES SCH ×3 (12:09→22:03)
[2019-01-14] MEDS: GABAPENTIN 300 MG CAPSULE PO SCH ×3 (12:09→22:04)
[2019-01-14] MEDS: FOLIC ACID 1 MG TABLET PO SCH (12:09)
[2019-01-14] MEDS: FUROSEMIDE 40 MG/4 ML VIAL IV SCH (12:10)
[2019-01-14] MEDS: PANTOPRAZOLE 40 MG VIAL IV SCH (12:11)
[2019-01-14] MEDS: FLUTICASONE 50 MCG NASAL SPRAY 16 GM BOTTLE BOTH NARES SCH (12:19)
[2019-01-14] MEDS: amLODIPine 5 MG TABLET PO SCH (12:22)
[2019-01-14] MEDS: POTASSIUM CHLORIDE 20 MEQ PACK PO SCH (12:41)
[2019-01-14 18:09] LABS: Hematocrit 24.4 VOL% (35.7-47.0); Hemoglobin 8.1 GM/DL (12.0-16.0)
[2019-01-14] MEDS: DONEPEZIL 10 MG TABLET PO SCH (22:04)
[2019-01-15] MEDS: PROPOFOL 1,000 MG/100 ML BOTTLE IV SCH ×5 (00:45→20:24)
[2019-01-15] MEDS: INSULIN REGULAR 100 UNIT/ML SUBCUT SCH ×4 (00:45→18:14)
[2019-01-15 02:50] LABS: Basophils % 0.1 % (0.0-0.8); Eosinophils # 0.1 10*3/uL (0.0-0.87); Eosinophils % 0.5 % (0.00-10.9); Hematocrit 21.6 VOL% (35.7-47.0); Hemoglobin 7.2 GM/DL (12.0-16.0); Immature Granulocytes % 0.5 %; Immature Granulocytes Absolute 0.05 #; Lymphocytes # 1.6 10*3/uL (1.4-4.0); Lymphocytes % 17.4 % (21.3-54.2); Mean Corpuscular HGB Conc 33.3 GM/DL (32-36); Mean Corpuscular Hemoglobin 28 PG (27-34); Mean Corpuscular Volume 83.4 FL (87-102); Mean Platelet Volume 9.8 FL (9.6-12.0); Monocytes % 10.7 % (1.7-12.7); Neutrophils # 6.6 10*3/uL (1.4-7.4); Neutrophils % 70.8 % (38.7-73.9); Platelet Count 206 T/CUMM (130-400); Red Blood Count 2.59 MC/CUMM (3.8-5.5); Red Cell Distribution Width 16.8 % (9.3-17.3); White Blood Count 9.3 T/CUMM (4-12)
[2019-01-15 02:58] LABS: Calcium 8.4 MG/DL (8.5-10.1); Potassium 3.6 MMOL/L (3.5-5.1)
[2019-01-15 03:02] LABS: Allen Test Positive; Pt O2 Delivery Device Ventilator
[2019-01-15 03:03] LABS: ABG Base Excess 4.8 MMOL/L (-2.5-2.5); ABG HCO3 27.9 MMOL/L (20-26); ABG Oxygen Saturation 98.3 % (95-100); ABG PO2 145.5 MM HG (80-95)
[2019-01-15] MEDS ORDERED: SODIUM CHLORIDE 0.9% 1,000 ML IV PRN (04:40)
[2019-01-15] MEDS: AMPICILLIN/SULBACTAM 3,000 MG in SODIUM CHLORIDE 0.9% 100 ML IV SCH ×4 (06:18→20:07)
[2019-01-15] MEDS: DILTIAZEM CD 180 MG CAPSULE PO SCH (08:41)
[2019-01-15] MEDS: MULTIVITAMIN (CENTRUM) TABLET PO SCH (08:41)
[2019-01-15] MEDS: POTASSIUM CHLORIDE 20 MEQ PACK PO SCH (08:41)
[2019-01-15] MEDS: GABAPENTIN 300 MG CAPSULE PO SCH ×3 (08:42→20:08)
[2019-01-15] MEDS: amLODIPine 5 MG TABLET PO SCH (08:42)
[2019-01-15] MEDS: ASPIRIN EC 81 MG TABLET PO SCH (08:42)
[2019-01-15] MEDS: FOLIC ACID 1 MG TABLET PO SCH (08:42)
[2019-01-15] MEDS: MEMANTINE 10 MG TABLET PO SCH ×2 (08:42→20:08)
[2019-01-15] MEDS: CARVEDILOL 3.125 MG TABLET PO SCH ×2 (08:42→16:40)
[2019-01-15] MEDS: FERROUS SULFATE 325 MG TABLET PO SCH (08:42)
[2019-01-15] MEDS: FUROSEMIDE 40 MG/4 ML VIAL IV SCH (08:45)
[2019-01-15] MEDS: PANTOPRAZOLE 40 MG VIAL IV SCH (08:48)
[2019-01-15] MEDS: BRIMONIDINE 0.15% OPH SOLN 1 DROP/DROPS BOTTLE BOTH EYES SCH ×3 (08:49→20:07)
[2019-01-15] MEDS: FLUTICASONE 50 MCG NASAL SPRAY 16 GM BOTTLE BOTH NARES SCH (08:49)
[2019-01-15 17:27] LABS: Hematocrit 38.5 VOL% (35.7-47.0); Hemoglobin 12.4 GM/DL (12.0-16.0)
[2019-01-15] MEDS: dilTIAZem Drip 125 MG/125 ML PREMIX IV SCH (18:14)
[2019-01-15] MEDS: DONEPEZIL 10 MG TABLET PO SCH (20:07)
[2019-01-16] MEDS: INSULIN REGULAR 100 UNIT/ML SUBCUT SCH ×5 (01:14→20:57)
[2019-01-16] MEDS: AMPICILLIN/SULBACTAM 3,000 MG in SODIUM CHLORIDE 0.9% 100 ML IV SCH ×4 (01:53→20:52)
[2019-01-16] MEDS: PROPOFOL 1,000 MG/100 ML BOTTLE IV SCH ×2 (01:53→02:18)
[2019-01-16 04:04] LABS: Allen Test Positive; Pt O2 Delivery Device Ventilator
[2019-01-16 04:05] LABS: ABG Base Excess 3.3 MMOL/L (-2.5-2.5); ABG HCO3 27.4 MMOL/L (20-26); ABG Oxygen Saturation 99.6 % (95-100); ABG PCO2 37.5 MM HG (35-48); ABG PH 7.466 (7.35-7.45); ABG TCO2 24.3 MMOL/L (23-27)
[2019-01-16 04:12] LABS: Basophils # 0.1 10*3/uL (0.0-0.2); Basophils % 0.3 % (0.0-0.8); Eosinophils # 0.1 10*3/uL (0.0-0.87); Eosinophils % 0.6 % (0.00-10.9); Hematocrit 31.9 VOL% (35.7-47.0); Hemoglobin 10.6 GM/DL (12.0-16.0); Immature Granulocytes % 0.5 %; Immature Granulocytes Absolute 0.07 #; Lymphocytes # 1.5 10*3/uL (1.4-4.0); Lymphocytes % 10.2 % (21.3-54.2); Mean Corpuscular HGB Conc 33.2 GM/DL (32-36); Mean Corpuscular Hemoglobin 28 PG (27-34); Mean Corpuscular Volume 83.7 FL (87-102); Mean Platelet Volume 10.4 FL (9.6-12.0); Monocytes # 0.9 10*3/uL (0.11-0.8); Monocytes % 6.2 % (1.7-12.7); Neutrophils # 12.1 10*3/uL (1.4-7.4); Neutrophils % 82.2 % (38.7-73.9); Platelet Count 187 T/CUMM (130-400); Red Blood Count 3.81 MC/CUMM (3.8-5.5); Red Cell Distribution Width 15.4 % (9.3-17.3); White Blood Count 14.7 T/CUMM (4-12)
[2019-01-16 04:48] LABS: Calcium 8.7 MG/DL (8.5-10.1); Osmolality,Calculated 287.1 MOS/KG (273-304); Potassium 3.4 MMOL/L (3.5-5.1)
[2019-01-16] MEDS: DILTIAZEM CD 180 MG CAPSULE PO SCH (08:44)
[2019-01-16] MEDS: amLODIPine 5 MG TABLET PO SCH (08:44)
[2019-01-16] MEDS: MULTIVITAMIN (CENTRUM) TABLET PO SCH (08:44)
[2019-01-16] MEDS: GABAPENTIN 300 MG CAPSULE PO SCH ×3 (08:45→20:51)
[2019-01-16] MEDS: POTASSIUM CHLORIDE 20 MEQ PACK PO SCH (08:45)
[2019-01-16] MEDS: ASPIRIN EC 81 MG TABLET PO SCH (08:45)
[2019-01-16] MEDS: PANTOPRAZOLE 40 MG VIAL IV SCH (08:45)
[2019-01-16] MEDS: MEMANTINE 10 MG TABLET PO SCH ×2 (08:45→20:51)
[2019-01-16] MEDS: FOLIC ACID 1 MG TABLET PO SCH (08:45)
[2019-01-16] MEDS: FUROSEMIDE 40 MG/4 ML VIAL IV SCH (08:46)
[2019-01-16] MEDS: CARVEDILOL 3.125 MG TABLET PO SCH ×2 (08:50→17:10)
[2019-01-16] MEDS: BRIMONIDINE 0.15% OPH SOLN 1 DROP/DROPS BOTTLE BOTH EYES SCH ×3 (08:50→20:57)
[2019-01-16] MEDS: FLUTICASONE 50 MCG NASAL SPRAY 16 GM BOTTLE BOTH NARES SCH (08:50)
[2019-01-16] MEDS: FERROUS SULFATE 325 MG TABLET PO SCH (08:50)
[2019-01-16] MEDS: dilTIAZem Drip 125 MG/125 ML PREMIX IV SCH (18:25)
[2019-01-16] MEDS: DONEPEZIL 10 MG TABLET PO SCH (20:51)
[2019-01-17] MEDS: AMPICILLIN/SULBACTAM 3,000 MG in SODIUM CHLORIDE 0.9% 100 ML IV SCH ×4 (01:14→20:39)
[2019-01-17 04:50] LABS: Basophils # 0.1 10*3/uL (0.0-0.2); Basophils % 0.7 % (0.0-0.8); Eosinophils # 0.3 10*3/uL (0.0-0.87); Eosinophils % 2.7 % (0.00-10.9); Hematocrit 31.3 VOL% (35.7-47.0); Hemoglobin 10.3 GM/DL (12.0-16.0); Immature Granulocytes % 0.3 %; Immature Granulocytes Absolute 0.03 #; Lymphocytes # 1.8 10*3/uL (1.4-4.0); Lymphocytes % 16.9 % (21.3-54.2); Mean Corpuscular HGB Conc 32.9 GM/DL (32-36); Mean Corpuscular Hemoglobin 28 PG (27-34); Mean Corpuscular Volume 85.1 FL (87-102); Mean Platelet Volume 9.8 FL (9.6-12.0); Monocytes # 0.7 10*3/uL (0.11-0.8); Monocytes % 6.4 % (1.7-12.7); Neutrophils # 7.7 10*3/uL (1.4-7.4); Platelet Count 170 T/CUMM (130-400); Red Blood Count 3.68 MC/CUMM (3.8-5.5); Red Cell Distribution Width 15.4 % (9.3-17.3); White Blood Count 10.5 T/CUMM (4-12)
[2019-01-17 04:57] LABS: Calcium 8.9 MG/DL (8.5-10.1); Osmolality,Calculated 282.3 MOS/KG (273-304); Potassium 3.8 MMOL/L (3.5-5.1)
[2019-01-17] MEDS: amLODIPine 5 MG TABLET PO SCH (08:34)
[2019-01-17] MEDS: POTASSIUM CHLORIDE 20 MEQ PACK PO SCH (08:34)
[2019-01-17] MEDS: FOLIC ACID 1 MG TABLET PO SCH (08:34)
[2019-01-17] MEDS: DILTIAZEM CD 180 MG CAPSULE PO SCH (08:34)
[2019-01-17] MEDS: GABAPENTIN 300 MG CAPSULE PO SCH ×3 (08:34→20:40)
[2019-01-17] MEDS: MEMANTINE 10 MG TABLET PO SCH ×2 (08:34→20:40)
[2019-01-17] MEDS: FERROUS SULFATE 325 MG TABLET PO SCH (08:34)
[2019-01-17] MEDS: ASPIRIN EC 81 MG TABLET PO SCH (08:34)
[2019-01-17] MEDS: MULTIVITAMIN (CENTRUM) TABLET PO SCH (08:34)
[2019-01-17] MEDS: CARVEDILOL 3.125 MG TABLET PO SCH ×2 (08:34→16:58)
[2019-01-17] MEDS: PANTOPRAZOLE 40 MG VIAL IV SCH (08:35)
[2019-01-17] MEDS: INSULIN REGULAR 100 UNIT/ML SUBCUT SCH (08:35)
[2019-01-17] MEDS: FLUTICASONE 50 MCG NASAL SPRAY 16 GM BOTTLE BOTH NARES SCH (08:35)
[2019-01-17] MEDS: FUROSEMIDE 40 MG/4 ML VIAL IV SCH (08:35)
[2019-01-17] MEDS: BRIMONIDINE 0.15% OPH SOLN 1 DROP/DROPS BOTTLE BOTH EYES SCH ×4 (08:35→20:43)
[2019-01-17] MEDS ORDERED: DEXTROSE 50% 25 GM/50 ML SYRINGE IV PRN (11:26)
[2019-01-17] MEDS ORDERED: GLUCAGON 1 MG VIAL IM PRN (11:26)
[2019-01-17] MEDS: INSULIN LISPRO 100 UNIT/ML SUBCUT SCH ×2 (11:53→17:06)
[2019-01-17] MEDS: DONEPEZIL 10 MG TABLET PO SCH (20:40)
[2019-01-17] MEDS: dilTIAZem Drip 125 MG/125 ML PREMIX IV SCH (20:45)
[2019-01-18] MEDS: INSULIN LISPRO 100 UNIT/ML SUBCUT SCH ×5 (00:10→21:31)
[2019-01-18] MEDS: AMPICILLIN/SULBACTAM 3,000 MG in SODIUM CHLORIDE 0.9% 100 ML IV SCH ×4 (02:04→21:30)
[2019-01-18] MEDS: CARVEDILOL 3.125 MG TABLET PO SCH ×2 (07:55→16:02)
[2019-01-18] MEDS: FOLIC ACID 1 MG TABLET PO SCH (07:59)
[2019-01-18] MEDS: MULTIVITAMIN (CENTRUM) TABLET PO SCH (07:59)
[2019-01-18] MEDS: FERROUS SULFATE 325 MG TABLET PO SCH (07:59)
[2019-01-18] MEDS: POTASSIUM CHLORIDE 20 MEQ PACK PO SCH (07:59)
[2019-01-18] MEDS: GABAPENTIN 300 MG CAPSULE PO SCH ×3 (07:59→21:31)
[2019-01-18] MEDS: amLODIPine 5 MG TABLET PO SCH (07:59)
[2019-01-18] MEDS: DILTIAZEM CD 180 MG CAPSULE PO SCH (07:59)
[2019-01-18] MEDS: MEMANTINE 10 MG TABLET PO SCH ×2 (07:59→21:31)
[2019-01-18] MEDS: ASPIRIN EC 81 MG TABLET PO SCH (07:59)
[2019-01-18] MEDS: FUROSEMIDE 40 MG/4 ML VIAL IV SCH (08:00)
[2019-01-18] MEDS: FLUTICASONE 50 MCG NASAL SPRAY 16 GM BOTTLE BOTH NARES SCH (08:04)
[2019-01-18] MEDS: BRIMONIDINE 0.15% OPH SOLN 1 DROP/DROPS BOTTLE BOTH EYES SCH ×3 (08:04→21:32)
[2019-01-18] MEDS: PANTOPRAZOLE 40 MG VIAL IV SCH (08:04)
[2019-01-18] MEDS: dilTIAZem Drip 125 MG/125 ML PREMIX IV SCH (20:46)
[2019-01-18] MEDS: DONEPEZIL 10 MG TABLET PO SCH (21:31)
[2019-01-19] MEDS: AMPICILLIN/SULBACTAM 3,000 MG in SODIUM CHLORIDE 0.9% 100 ML IV SCH ×4 (03:20→21:31)
[2019-01-19 04:56] LABS: Basophils # 0.1 10*3/uL (0.0-0.2); Basophils % 1.1 % (0.0-0.8); Eosinophils # 0.2 10*3/uL (0.0-0.87); Eosinophils % 2.7 % (0.00-10.9); Hematocrit 30.5 VOL% (35.7-47.0); Hemoglobin 9.9 GM/DL (12.0-16.0); Immature Granulocytes % 0.4 %; Immature Granulocytes Absolute 0.03 #; Lymphocytes # 1.9 10*3/uL (1.4-4.0); Lymphocytes % 25.4 % (21.3-54.2); Mean Corpuscular HGB Conc 32.5 GM/DL (32-36); Mean Corpuscular Hemoglobin 28 PG (27-34); Mean Corpuscular Volume 85.2 FL (87-102); Mean Platelet Volume 10.3 FL (9.6-12.0); Monocytes # 0.4 10*3/uL (0.11-0.8); Monocytes % 5.7 % (1.7-12.7); Neutrophils # 4.7 10*3/uL (1.4-7.4); Neutrophils % 64.7 % (38.7-73.9); Platelet Count 183 T/CUMM (130-400); Red Blood Count 3.58 MC/CUMM (3.8-5.5); Red Cell Distribution Width 14.8 % (9.3-17.3); White Blood Count 7.3 T/CUMM (4-12)
[2019-01-19 05:23] LABS: Calcium 8.9 MG/DL (8.5-10.1); Osmolality,Calculated 282.1 MOS/KG (273-304); Potassium 3.9 MMOL/L (3.5-5.1)
[2019-01-19] MEDS: GABAPENTIN 300 MG CAPSULE PO SCH ×3 (10:07→21:37)
[2019-01-19] MEDS: PANTOPRAZOLE 40 MG TABLET PO SCH (10:07)
[2019-01-19] MEDS: FOLIC ACID 1 MG TABLET PO SCH (10:08)
[2019-01-19] MEDS: ASPIRIN EC 81 MG TABLET PO SCH (10:08)
[2019-01-19] MEDS: DILTIAZEM CD 180 MG CAPSULE PO SCH (10:08)
[2019-01-19] MEDS: MULTIVITAMIN (CENTRUM) TABLET PO SCH (10:08)
[2019-01-19] MEDS: FUROSEMIDE 40 MG TABLET PO SCH (10:09)
[2019-01-19] MEDS: CARVEDILOL 3.125 MG TABLET PO SCH ×2 (10:09→16:57)
[2019-01-19] MEDS: amLODIPine 5 MG TABLET PO SCH (10:10)
[2019-01-19] MEDS: FERROUS SULFATE 325 MG TABLET PO SCH (10:10)
[2019-01-19] MEDS: MEMANTINE 10 MG TABLET PO SCH ×2 (10:10→21:33)
[2019-01-19] MEDS: POTASSIUM CHLORIDE 20 MEQ PACK PO SCH (10:11)
[2019-01-19] MEDS: INSULIN LISPRO 100 UNIT/ML SUBCUT SCH ×3 (10:22→22:55)
[2019-01-19] MEDS: BRIMONIDINE 0.15% OPH SOLN 1 DROP/DROPS BOTTLE BOTH EYES SCH ×3 (10:23→21:33)
[2019-01-19] MEDS: FLUTICASONE 50 MCG NASAL SPRAY 16 GM BOTTLE BOTH NARES SCH (10:23)
[2019-01-19] MEDS: DONEPEZIL 10 MG TABLET PO SCH (21:33)
[2019-01-20] MEDS: AMPICILLIN/SULBACTAM 3,000 MG in SODIUM CHLORIDE 0.9% 100 ML IV SCH ×3 (02:15→13:59)
[2019-01-20 04:29] LABS: Basophils # 0.1 10*3/uL (0.0-0.2); Basophils % 0.9 % (0.0-0.8); Eosinophils # 0.2 10*3/uL (0.0-0.87); Hematocrit 30.3 VOL% (35.7-47.0); Hemoglobin 9.9 GM/DL (12.0-16.0); Immature Granulocytes % 0.4 %; Immature Granulocytes Absolute 0.03 #; Lymphocytes # 1.6 10*3/uL (1.4-4.0); Lymphocytes % 24.2 % (21.3-54.2); Mean Corpuscular HGB Conc 32.7 GM/DL (32-36); Mean Corpuscular Hemoglobin 28 PG (27-34); Mean Corpuscular Volume 84.2 FL (87-102); Mean Platelet Volume 9.8 FL (9.6-12.0); Monocytes # 0.5 10*3/uL (0.11-0.8); Neutrophils # 4.3 10*3/uL (1.4-7.4); Neutrophils % 64.5 % (38.7-73.9); Platelet Count 176 T/CUMM (130-400); Red Cell Distribution Width 14.6 % (9.3-17.3); White Blood Count 6.7 T/CUMM (4-12)
[2019-01-20 04:52] LABS: Anisocytosis 1+; Hypochromasia 1+; Osmolality,Calculated 282.1 MOS/KG (273-304); Platelet Estimate Adequate; Potassium 3.9 MMOL/L (3.5-5.1); Target Cells Few
[2019-01-20] MEDS: POTASSIUM CHLORIDE 20 MEQ PACK PO SCH (09:08)
[2019-01-20] MEDS: amLODIPine 5 MG TABLET PO SCH (09:09)
[2019-01-20] MEDS: FERROUS SULFATE 325 MG TABLET PO SCH (09:09)
[2019-01-20] MEDS: MEMANTINE 10 MG TABLET PO SCH (09:09)
[2019-01-20] MEDS: FUROSEMIDE 40 MG TABLET PO SCH (09:09)
[2019-01-20] MEDS: PANTOPRAZOLE 40 MG TABLET PO SCH (09:09)
[2019-01-20] MEDS: FOLIC ACID 1 MG TABLET PO SCH (09:09)
[2019-01-20] MEDS: GABAPENTIN 300 MG CAPSULE PO SCH (09:09)
[2019-01-20] MEDS: ASPIRIN EC 81 MG TABLET PO SCH (09:09)
[2019-01-20] MEDS: CARVEDILOL 3.125 MG TABLET PO SCH (09:09)
[2019-01-20] MEDS: MULTIVITAMIN (CENTRUM) TABLET PO SCH (09:10)
[2019-01-20] MEDS: DILTIAZEM CD 180 MG CAPSULE PO SCH (09:10)
[2019-01-20] MEDS: FLUTICASONE 50 MCG NASAL SPRAY 16 GM BOTTLE BOTH NARES SCH (09:25)
[2019-01-20] MEDS: BRIMONIDINE 0.15% OPH SOLN 1 DROP/DROPS BOTTLE BOTH EYES SCH (09:26)
[2019-01-20] MEDS: INSULIN LISPRO 100 UNIT/ML SUBCUT SCH ×2 (09:37→13:24)
[2019-01-20 11:15] VITALS: BP 127/53
== END 2019-01-20 15:21 | DRG 208 ==
LOC: EDBD → EDUNIT# → N.ED 23:57 → SUATTDRO 01-13 01:44 → N.CC 01-13 03:06 → N.TELEN 01-17 14:07
PROVIDERS: ADMIT Internal Medicine; ATTEND Internal Medicine